=== PATIENT | male | born 1955 | race Caucasian/White ===

== ENCOUNTER 2018-06-30 08:15 | Emergency (ER) | payer BC ==
[~2018-06-30] VITALS: Ht 175.3 cm; Wt 90.9 kg
[2018-06-30] MEDS ORDERED: ASPIRIN E.C. 8181 MG PO (08:23)
[2018-06-30 08:51] LABS: HEMATOCRIT 45.1 % (42.0-52.0); HEMOGLOBIN 15.2 g/dL (13.5-18.0); MEAN CELL VOLUME 94 fl (78-100); MEAN CORPUSCULAR HEMOGLOBIN 32 pg (27-31); MEAN CORPUSCULAR HGB CONC 34 g/dL (33-37); MEAN PLATELET VOLUME 9.8 fl (7.4-10.4); PLATELET COUNT 317 K/mm3 (130-400); RED BLOOD COUNT 4.78 M/mm3 (4.20-5.60); RED CELL DISTRIBUTION WIDTH 12.9 % (11.5-14.5); WHITE BLOOD COUNT 15.8 K/mm3 (4.8-10.8)
[2018-06-30 09:03] LABS: BAND 1 % (0-10); LYMPHOCYTE 9 % (20-51); MONOCYTE 11 % (3-10); NEUTROPHILS 78 % (42-75)
[2018-06-30 09:10] LABS: ALBUMIN 4.7 g/dL (3.5-5.0); CALCIUM 9.9 mg/dL (8.4-10.2); POTASSIUM 4.2 mmol/L (3.6-5.0); TOTAL BILIRUBIN 1.1 mg/dL (0.2-1.3); TOTAL PROTEIN 9.1 g/dL (6.3-8.2)
[2018-06-30 09:56] LABS: URINE APPEARANCE CLEAR; URINE BILIRUBIN NEGATIVE (NEGATIVE); URINE COLOR DARK YELLOW; URINE GLUCOSE NEGATIVE (NEGATIVE); URINE KETONE SMALL (NEGATIVE); URINE NITRATE NEGATIVE (NEGATIVE); URINE PROTEIN(semi-quant) 2+ mg/dL (NEGATIVE); URINE UROBILINOGEN NORMAL (NORMAL)
[2018-06-30 09:57] LABS: URINE BLOOD 50 ery/uL (NEGATIVE); URINE LEUKOCYTE ESTERASE NEGATIVE (NEGATIVE); URINE MUCUS PRESENT (NOT PRESENT)
[2018-06-30] MEDS ORDERED: CIPRO500 M1 PO (12:03)
[2018-06-30] MEDS ORDERED: PERCOCET 325 MG1 TA2 PO (12:03)
[2018-06-30 12:12] VITALS: BP 157/104
== END 2018-06-30 12:13 | disposition home or self-care (01) ==
LOC: ED 08:15
PROVIDERS: Nurse Practitioner Primary Care
DX: N20.0 Calculus of kidney (principal); E86.0 Dehydration; Z79.82 Long term (current) use of aspirin
CPT/HCPCS: J1885; J2270; J2405; J7030

== ENCOUNTER → 2018-10-21 | Outpatient (CLI) | payer BC ==
[~2018-10-21] MED LIST: ASPIRIN E.C. 8181 MG PO; CIPRO500 M1 PO; PERCOCET 325 MG1 TA2 PO
[2018-10-21 17:30] LABS: FACTOR V LEIDEN MUTATION B Negative (Negative)
[2018-10-23 09:03] LABS: PROTEIN S ACTIVITY 102 % (64-149)
== END ==
LOC: LAB 07:38
PROVIDERS: Family Medicine
DX: I82.4Z2 Acute embolism and thrombosis of unspecified deep veins of left distal lower extremity (principal)

== ENCOUNTER → 2019-01-14 | Outpatient (CLI) | payer BC ==
[2019-01-14 07:42] LABS: ALBUMIN 4.1 g/dL (3.4-4.8)
[2019-01-14 07:43] LABS: CALCIUM 9.4 mg/dL (8.3-10.5)
[2019-01-14 07:45] LABS: TOTAL PROTEIN 7.4 g/dL (6.2-8.1)
[2019-01-14 07:47] LABS: TOTAL BILIRUBIN 0.7 mg/dL (0.2-1.2)
[2019-01-16 10:13] LABS: BETA-2GPI IGG AABS <20.0 CU (<=20.0); BETA-2GPI IGM AABS <20.0 CU (<=20.0)
[2019-01-18 13:26] LABS: LUPUS ANTICOAGULANT DRVVT 1.12 ratio (()); LUPUS ANTICOAGULANT INTERP 31.2 Seconds (()); LUPUS ANTICOAGULANT PTT 29.5 Seconds (())
== END ==
LOC: LAB 07:04
PROVIDERS: Family Medicine
DX: Z12.5 Encounter for screening for malignant neoplasm of prostate (principal); Z13.1 Encounter for screening for diabetes mellitus; Z13.6 Encounter for screening for cardiovascular disorders; I82.432 Acute embolism and thrombosis of left popliteal vein; I10 Essential (primary) hypertension; N13.2 Hydronephrosis with renal and ureteral calculous obstruction; E78.00 Pure hypercholesterolemia, unspecified

== ENCOUNTER → 2019-01-21 | Outpatient (CLI) | payer BC | LOC: VAS 16:47 → RAD 17:00 | DX: Z00.00 Encounter for general adult medical examination without abnormal findings (principal); Z12.5 Encounter for screening for malignant neoplasm of prostate; Z12.12 Encounter for screening for malignant neoplasm of rectum; Z13.1 Encounter for screening for diabetes mellitus; Z13.6 Encounter for screening for cardiovascular disorders; I10 Essential (primary) hypertension; N13.2 Hydronephrosis with renal and ureteral calculous obstruction; E78.00 Pure hypercholesterolemia, unspecified ==

== ENCOUNTER → 2024-05-13 | Outpatient (CLI) | payer MEDICARE, OTHER | LOC: LAB 08:30 | DX: Z12.5 Encounter for screening for malignant neoplasm of prostate (principal); Z13.1 Encounter for screening for diabetes mellitus; Z11.59 Encounter for screening for other viral diseases; E78.2 Mixed hyperlipidemia ==